=== PATIENT | female | born 1985 ===

== ENCOUNTER 2016-08-03 14:04 | Emergency (ER) | payer MEDICAID ==
[2016-08-03] MEDS ORDERED: Sodium Chloride 0.9% 1,000 ML IV ONE (14:55)
[2016-08-03 15:00] LABS: RBC URINE 15 /hpf (0-3); URINE BILIRUBIN NEGATIVE (NEGATIVE); URINE BLOOD 3+ (NEGATIVE); URINE COLOR Yellow (YELLOW); URINE GLUCOSE (UA) NORMAL (Normal); URINE KETONE NEGATIVE (NEGATIVE); URINE LEUKOCYTE ESTERASE NEG Leu/uL (Negative); URINE PROTEIN NEGATIVE (NEGATIVE); URINE UROBILINOGEN NORMAL mg/dL (0.2-1.0); WBC URINE < 1 /hpf (0-5)
[2016-08-03] MEDS ORDERED: Sodium Chloride 0.9% 1,000 ML ONE (15:33)
--- NOTE | 2016-08-03 15:45 | US ---
HISTORY: Left sided pelvic pain COMPARISON: None available. TECHNIQUE: Real-time transabdominal pelvic ultrasound was performed. In addition a transvaginal pelvic ultrasound was necessary to better depict pelvic anatomy. FINDINGS: UTERUS: Measures 8.6 x 3.8 x 4.9 cm. Anteverted. ENDOMETRIUM: Measures 5 mm in diameter. CERVIX: Cervix length measures approximately 2.9 cm. RIGHT OVARY: Measures 2.5 x 1.6 x 2.6 cm. Blood flow is demonstrated. LEFT OVARY: Measures 2.8 x 1.4 x 2.9 cm. Blood flow is demonstrated. FREE FLUID: No significant free fluid noted. OTHER FINDINGS: None. IMPRESSION: Unremarkable pelvic ultrasound.
--- NOTE | 2016-08-03 15:59 | C.PDOC ---
History Of Present Illness 30 y/o female presents to the emergency department with complains of left sided pelvic pain x2 days with vaginal bleeding. Pt states she typically has her period monthly but this month is different, with the bleeding starting earlier and heavier bleeding. Pt states the blood is more brown than red. She took a test at home that was negative. Denies fever, chills, abdominal pain, vomiting or any other complaints. Time Seen by Provider: 08/03/16 14:21 Chief Complaint (Nursing): Abdominal Pain History Per: Patient History/Exam Limitations: no limitations Onset/Duration Of Symptoms: Days Current Symptoms Are (Timing): Still Present Severity: Mild Radiation Of Pain To:: None Associated Symptoms: denies: Fever, Chills, Nausea, Vomiting Exacerbating Factors: None Alleviating Factors: None Recent travel outside of the [place]: No Abnormal Vaginal Bleeding: Yes Past Medical History Reviewed: Historical Data, Nursing Documentation, Vital Signs Vital Signs: Last Vital Signs Temp 99 F 08/03/16 16:20 Pulse 75 08/03/16 16:20 Resp 18 08/03/16 16:20 BP 100/68 08/03/16 16:20 Pulse Ox 98 08/03/16 16:20 - Medical History PMH: Asthma Family History: States: No Known Family Hx, Unknown Family Hx - Social History Hx Alcohol Use: Yes Hx Substance Use: No - Immunization History Hx Tetanus Toxoid Vaccination: No Hx Influenza Vaccination: No Hx Pneumococcal Vaccination: No Review Of Systems Except As Marked, All Systems Reviewed And Found Negative. Constitutional: Negative for: Fever, Chills Gastrointestinal: Negative for: Nausea, Vomiting, Abdominal Pain Genitourinary: Positive for: Vaginal Bleeding (brown), Pelvic Pain Physical Exam - Physical Exam Appears: Non-toxic, No Acute Distress Skin: Warm, Dry, No Rash Head: Atraumatic, Normacephalic Eye(s): bilateral: Normal Inspection, PERRL, EOMI Oral Mucosa: Moist Neck: Normal, Normal ROM, Supple Chest: Symmetrical Cardiovascular: Rhythm Regular, No Friction Rub, No Murmur Respiratory: Normal Breath Sounds, No Rales, No Rhonchi, No Wheezing Gastrointestinal/Abdominal: Soft, Tenderness (mild left pelvic tenderness), No Guarding, No Rebound Back: Normal Inspection, No CVA Tenderness Extremity: Normal ROM, No Swelling Extremity: Bilateral: Atraumatic Neurological/Psych: Oriented x3, Normal Speech, Normal Motor Gait: Steady ED Course And Treatment - Laboratory Results Result Diagrams: 08/03/16 15:53 08/03/16 15:53 O2 Sat by Pulse Oximetry: 100 (room air) Pulse Ox Interpretation: Normal - CT Scan/US US transvaginal Other Rad Studies (CT/US): Read By Radiologist, Radiology Report Reviewed CT/US Interpretation: Accession No. : [id number]. Patient Name / ID : KERRY WHALEY / [id number]. Exam Date : 08/03/2016 15:18:01 ( Approved ). Study Comment : Sex / Age : F / 30Y. Creator : Citlali Fry MD. Dictator : Citlali Fry MD. Architect Naval : Ct Technician : Citlali Fry MD. Approver2 : Report Date : 08/03/2016 15:43:52. My Comment : . HISTORY: Left sided pelvic pain. COMPARISON: None available. TECHNIQUE : Real-time transabdominal pelvic ultrasound was performed. In addition a transvaginal pelvic ultrasound was necessary to better depict pelvic anatomy. FINDINGS: UTERUS: Measures 8.6 x 3.8 x 4.9 cm. Anteverted. ENDOMETRIUM: Measures 5 mm in diameter. CERVIX: Cervix length measures approximately 2.9 cm. RIGHT OVARY: Measures 2.5 x 1.6 x 2.6 cm. Blood flow is demonstrated. LEFT OVARY: Measures 2.8 x 1.4 x 2.9 cm. Blood flow is demonstrated. FREE FLUID: No significant free fluid noted. OTHER FINDINGS: None. IMPRESSION: Unremarkable pelvic ultrasound. Progress Note: Plan: labs, US transvag, UA, IV fluids, toradol. The patient refused pain medications. On re-exam, the patient reports improvement of symptoms. Ambulatory in the ED with steady gait. Lungs are CTA, heart is RRR, abdomen is soft, non-tender and patient is tolerating PO well. Follow up with the medical doctor within 1-2 days without fail. Return if worsened. Disposition - Disposition Referrals: [facility] at [facility] [Outside] Disposition: HOME/ ROUTINE Disposition Time: 16:18 Condition: GOOD Additional Instructions: Follow up with the medical doctor within 1-2 days without fail. Return if worsened. Prescriptions: Naproxen [Naprosyn] 500 mg PO BID #20 tab Instructions: Dysmenorrhea (ED) Forms: Work Excuse - Clinical Impression Clinical Impression: Dysmenorrhea - PA / [employer] / Resident Statement MD/DO has reviewed & agrees with the documentation as recorded. - Scribe Statement The provider has reviewed the documentation as recorded by the Franklin Barton All medical record entries made by the Franklin were at my direction and personally dictated by me. I have reviewed the chart and agree that the record accurately reflects my personal performance of the history, physical exam, medical decision making, and the department course for this patient. I have also personally directed, reviewed, and agree with the discharge instructions and disposition.
[2016-08-03 16:03] LABS: BASO # 0.1 K/uL (0.0-0.2); BASO % 0.7 % (0.0-2.0); EOS # 0.1 K/uL (0.0-0.7); EOS % 0.8 % (0.0-4.0); HEMATOCRIT 36.7 % (34.0-47.0); LYMPH # 1.8 K/uL (1.0-4.3); LYMPH % 22.9 % (20.0-40.0); MEAN CELL VOLUME 86.8 fL (81.0-99.0); MEAN CORPUSCULAR HEMOGLOBIN 28.6 pg (27.0-31.0); MEAN CORPUSCULAR HGB CONC 32.9 g/dL (33.0-37.0); MEAN PLATELET VOLUME 7.3 fL (7.2-11.7); MONO # 0.5 K/uL (0.0-0.8); MONO % 5.7 % (0.0-10.0); RED CELL DISTRIBUTION WIDTH 14.1 % (11.5-14.5)
[2016-08-03 16:05] LABS: CHLORIDE 102 mmol/L (98-107)
[2016-08-03 16:06] LABS: SODIUM 135 mmol/L (132-148)
[2016-08-03 16:07] LABS: POTASSIUM 4.4 mmol/L (3.6-5.2)
[2016-08-03 16:08] LABS: GFR AFRICAN-AMERICAN > 60
[2016-08-03 16:09] LABS: ALB/GLOB RATIO 1.4 (1.0-2.1); ALKALINE PHOSPHATASE 60 U/L (38-126); ALT/SGPT 22 U/L (9-52); AST/SGOT 39 U/L (14-36); BLOOD UREA NITROGEN 10 mg/dL (7-17); CARBON DIOXIDE 22 mmol/L (22-30); GLUCOSE,RANDOM 96 mg/dL (65-105); TOTAL PROTEIN 7.5 g/dL (6.3-8.3)
[2016-08-03 16:10] LABS: CALCIUM 9.5 mg/dl (8.6-10.4)
[2016-08-03 16:21] VITALS: BP 100/68; PULSE 75; RESP 18; TEMP 99
[2016-08-03 16:42] VITALS: O2SAT 100
== END 2016-08-03 16:24 | disposition home or self-care (01) ==
LOC: C.ER 14:04
DX: N94.6 Dysmenorrhea, unspecified (principal)